=== PATIENT | male | born 1975 | race Caucasian/White ===

== ENCOUNTER 2016-05-15 15:02 | Emergency (ER) | payer OTHER ==
[~2016-05-15] VITALS: Ht 175.3 cm; Wt 68.0 kg
[2016-05-15 15:45] LABS: DAU SCREEN DISCLAIMER
[2016-05-15 15:59] LABS: HEMOGLOBIN 17.6 g/dL (13.7-18.0)
[2016-05-15 16:12] LABS: ASPARTATE AMINO TRANSFERASE 16 U/L (15-37); BLOOD UREA NITROGEN 9 mg/dL (7-18)
[2016-05-15 16:58] VITALS: BP 99/51
== END 2016-05-15 18:04 | disposition home or self-care (01) ==
LOC: ED 17:58
DX: J01.10 Acute frontal sinusitis, unspecified (principal); R56.9 Unspecified convulsions; R55 Syncope and collapse
CPT/HCPCS: 36415; 70450; 80053; 80307; 83735; 85025; 93005